=== PATIENT | male | born 1995 | race Caucasian/White ===

== ENCOUNTER 2019-04-12 01:46 | Outpatient (CLI) | payer OTHER, SELFPAY ==
--- NOTE | 2019-04-12 14:32 | DI.RAD_ITS ---
SYMPTOMS/DIAGNOSIS: STERNOCLAVICULAR JOINT PAIN, M25.511 LEFT CLAVICLE: There are no prior comparison exams. No fracture or AC joint widening is seen. The sternoclavicular joints are not ideally seen. The head of the clavicle appears normally positioned. The glenohumeral joint is unremarkable. IMPRESSION: Negative left clavicle.
== END 2019-04-12 02:06 ==
PROVIDERS: PCP Nurse Practitioner Family; Visit Provider Family Medicine
DX: M25.512 Pain in left shoulder (principal)
CPT/HCPCS: 73000

== ENCOUNTER 2020-06-09 01:10 | Outpatient (CLI) | payer MEDICAID, SELFPAY ==
--- NOTE | 2020-06-09 12:33 | DI.RAD_ITS ---
EXAM: XR WRIST LT COMP NAVICULAR CLINICAL HISTORY: LT WRIST PAIN,M25.532. TECHNIQUE: 2D digital imaging was performed. COMPARISON: No exams were available for comparison FINDINGS: BONES: No acute fracture is present. No bony destructive lesion is seen. JOINTS: The carpal bones are normally aligned. SOFT TISSUE: Normal. IMPRESSION: Unremarkable radiographs of the left wrist. DATA REPOSITORY: RADIATION DOSE DELIVERED:
== END 2020-06-09 01:30 ==
PROVIDERS: PCP Nurse Practitioner Family; Visit Provider Nurse Practitioner Family
DX: M25.532 Pain in left wrist (principal)
CPT/HCPCS: 73110

== ENCOUNTER 2020-08-14 20:59 | Outpatient (REF) | payer MEDICAID, SELFPAY ==
[2020-08-16 14:04] LABS: Patient Race White; SARS-CoV-2 RNA Undetected (Undetected); SARS-CoV-2 Specimen Source Nasal
== END 2020-08-14 21:19 ==
LOC: NCHCN 20:59
PROVIDERS: PCP Nurse Practitioner Family; Visit Provider Nurse Practitioner Family
DX: Z11.59 Encounter for screening for other viral diseases (principal)
CPT/HCPCS: U0003

== ENCOUNTER 2020-08-18 00:43 | Outpatient (CLI) | payer MEDICAID, SELFPAY ==
--- NOTE | 2020-08-18 07:09 | DI.US_ITS ---
EXAM: US SCROTUM CLINICAL HISTORY: left testicular pain more with ejaculations,N50.819 TECHNIQUE: Scrotal ultrasound was performed utilizing scanning with high-frequency transducer. COMPARISON: No exams were available for comparison FINDINGS: The testes are normal in size and shape and are normal in echotexture. There is small calcification of left testis. There is normal vascular flow of the testes on Doppler evaluation and flow is symmet rical. No testicular mass identified. The epididymi are unremarkable in appearance except for a 2 millimeter left epididymal spermatocele. There is normal epididymal normal vascular flow. There is no evidence of a varicocele or hydrocele. IMPRESSION: Normal scrotal ultrasound. RADIATION DOSE DELIVERED: Total DLP
== END 2020-08-18 01:03 ==
PROVIDERS: PCP Nurse Practitioner Family; Visit Provider Nurse Practitioner Gerontology
DX: N50.812 Left testicular pain (principal)
CPT/HCPCS: 76870

== ENCOUNTER 2020-10-21 15:19 | Outpatient (REF) | payer MEDICAID, SELFPAY ==
[2020-10-23 15:04] LABS: Chlamydia Result Negative (Negative); GC Result Negative (Negative)
== END 2020-10-21 15:20 | disposition home or self-care (01) ==
LOC: NCHCN 15:19
PROVIDERS: PCP Nurse Practitioner Family; Visit Provider Nurse Practitioner Family
DX: Z20.2 Contact with and (suspected) exposure to infections with a predominantly sexual mode of transmission (principal)
CPT/HCPCS: 87491; 87591